=== PATIENT | female | born 1960 | race Caucasian/White ===

== ENCOUNTER 2019-05-18 11:28 | Emergency (ER) | payer MEDICARE, OTHER ==
[~2019-05-18] VITALS: Ht 162.6 cm; Wt 96.2 kg
[2019-05-18] MEDS ORDERED: OXYCONTIN10 MG PO (12:25)
[2019-05-18] MEDS ORDERED: CEPHALEXIN250 MG PO (12:26)
[2019-05-18] MEDS ORDERED: SOMA350 MG PO (12:26)
[2019-05-18] MEDS ORDERED: PROVENTIL HFA6.7 GM INH (15:49)
--- NOTE | 2019-05-18 23:42 | EKG ---
[facility] [address] [facility] [place] [address] Signed Normal sinus rhythm Inferior infarct , age undetermined Anterior infarct , age undetermined Abnormal ECG No previous ECGs available Confirmed by CHIP CRUZ MD ([id number]) on 05/18/2019 11:41:58 PM Electronically Signed By: CHIP CRUZ MD 05/18/19 234 PATIENT NAME: TOM SMYTH Electrocardiogram DATE OF : 64 PHYSICIAN: CHIP CRUZ MD REPORT #: [id number] REPORT IS CONFIDENTIAL AND NOT TO BE RELEASED WITHOUT AUTHORIZATION
== END 2019-05-18 16:13 | disposition home or self-care (01) ==
LOC: ED 11:28
DX: E87.6 Hypokalemia (principal); J40 Bronchitis, not specified as acute or chronic; Z91.040 Latex allergy status; Z79.891 Long term (current) use of opiate analgesic; Z79.899 Other long term (current) drug therapy
CPT/HCPCS: 71045; 80053; 83605; 83880; 84484; 85025; 93005; 93010; 94640; 99284-25

== ENCOUNTER 2023-01-09 22:11 | Emergency (ER) | payer MEDICARE, OTHER ==
[~2023-01-09] VITALS: Ht 162.6 cm; Wt 101.3 kg
[~2023-01-09 22:11] MED LIST: CEPHALEXIN250 MG PO; OXYCONTIN10 MG PO; PROVENTIL HFA6.7 GM INH; SOMA350 MG PO
--- OUTSIDE RECORDS SUMMARY | 2023-01-09 22:14 | XMS ---
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 Steven has no Care Guidelines for this patient. Lauren VISIT COUNT (12 MO.) 1 [facility] 1 [facility] TOTAL 2 NOTE: Visits indicate total known visits. ED/[facility] VISIT TRACKING (12 MO.) [facility]23 22[facility] COMPLAINT: - FACIAL NUMBNESS,DIZZY 01/03/2023 09:36 [facility] OR TYPE: Emergency DIAGNOSES: - Paresthesia of skin - DIZZY NAUSEA INPATIENT VISIT TRACKING (12 MO.) No inpatient visits to display in this time frame [email or web address]
[2023-01-09] MEDS ORDERED: POTASSIUM CHLO20 ME1 PO (22:55)
[2023-01-09] MEDS ORDERED: VASCEPA1 GM PO (22:56)
[2023-01-09] MEDS ORDERED: NALOXONE HCL4 MG NS (22:56)
[2023-01-09] MEDS ORDERED: HYDROCHLOROTHIA25 MG PO (22:57)
[2023-01-09] MEDS ORDERED: LORAZEPAM0.5 MG PO (22:57)
[2023-01-09] MEDS ORDERED: OMEPRAZOLE20 MG PO (22:57)
[2023-01-10 01:00] VITALS: BP 121/73
== END 2023-01-10 01:00 | disposition home or self-care (01) ==
LOC: ED 22:11
DX: R20.0 Anesthesia of skin (principal); R42 Dizziness and giddiness; Z91.040 Latex allergy status; Z79.899 Other long term (current) drug therapy
CPT/HCPCS: 99283

== ENCOUNTER 2024-12-15 10:25 | Emergency (ER) | payer MEDICARE, OTHER ==
[~2024-12-15] VITALS: Ht 162.6 cm; Wt 98.0 kg
[~2024-12-15 10:25] MED LIST changes: +HYDROCHLOROTHIA25 MG PO; +LORAZEPAM0.5 MG PO; +NALOXONE HCL4 MG NS; +OMEPRAZOLE20 MG PO; +POTASSIUM CHLO20 ME1 PO; +VASCEPA1 GM PO
[2024-12-15] MEDS ORDERED: OMEPRAZOLE40 MG PO (11:37)
[2024-12-15] MEDS ORDERED: LOW DOSE ASPIRI81 MG PO (11:38)
[2024-12-15] MEDS ORDERED: HYDROCODONE/ACETA 5/325 TAB PO ONE (12:00)
[2024-12-15] MEDS ORDERED: HYDROCODON-ACE1 EA10 PO (14:08)
[2024-12-15 14:12] VITALS: BP 138/90
== END 2024-12-15 14:12 | disposition home or self-care (01) ==
LOC: ED 10:25
DX: M77.8 Other enthesopathies, not elsewhere classified (principal); Z79.899 Other long term (current) drug therapy; Z79.82 Long term (current) use of aspirin; Z91.040 Latex allergy status; Z88.8 Allergy status to other drugs, medicaments and biological substances
CPT/HCPCS: 73030; 99283